=== PATIENT | female | born 1995 | race Asian ===

== ENCOUNTER 2017-05-25 07:18 | Emergency (ER) | payer OTHER ==
[~2017-05-25] VITALS: Ht 162.6 cm; Wt 53.5 kg
[2017-05-25] MEDS ORDERED: METPRE4DP PO (08:33)
[2017-09-08] MEDS ORDERED: GABA300 PO (16:22)
[2017-09-08] MEDS ORDERED: AMIT10 PO (16:22)
[2017-09-08] MEDS ORDERED: Norco 5-325 Ta1 EACH PO (18:23)
== END 2017-05-25 08:55 | disposition home or self-care (01) ==
LOC: ER 07:18
DX: G51.0 Bell's palsy (principal)
CPT/HCPCS: 99282

== ENCOUNTER → 2019-01-05 | Outpatient (CLI) | payer OTHER ==
[~2019-01-05] MED LIST: AMIT10 PO; GABA300 PO; METPRE4DP PO; Norco 5-325 Ta1 EACH PO
== END | disposition home or self-care (01) ==
LOC: LAB 11:44 → LAB SHORT 11:44
PROVIDERS: Advanced Practice Midwife
DX: Z01.419 Encounter for gynecological examination (general) (routine) without abnormal findings (principal)
CPT/HCPCS: G0123

== ENCOUNTER → 2020-07-26 | Outpatient (CLI) | payer OTHER ==
[2020-07-26 13:34] LABS: Source, Urine Clean Catch
[2020-07-26 14:58] LABS: U Amphetamine Screen Not Detected; U Barbituate Screen Not Detected; U Buprenorphine Screen Not Detected; U Cannabinoids Screen Not Detected; U Cocaine Screen Not Detected; U Methadone Screen Not Detected; U Methamphetamine Screen Not Detected; U Opiates Screen Not Detected; U Oxycodone Screen Not Detected; U Phencyclidine Screen Not Detected; U Propoxyphene Screen Not Detected
[2020-07-26 14:59] LABS: U Benzodiazapine Screen Not Detected
[2020-07-26 15:02] LABS: Bacteria Rare /hpf; Red Blood Cells, Urine Not Seen /hpf (0-2); Squamous Epithelial Cells Few /hpf (Few); White Blood Cells, Urine Not Seen /hpf (0-5)
== END ==
LOC: LAB SHORT 13:32 → PLD 13:32
PROVIDERS: Obstetrics & Gynecology
DX: Z34.81 Encounter for supervision of other normal pregnancy, first trimester (principal)
CPT/HCPCS: 81015; 87086

== ENCOUNTER 2021-02-08 01:15 | Inpatient (IN) | payer OTHER ==
[~2021-02-08] VITALS: Ht 162.6 cm; Wt 68.2 kg
[2021-02-08 02:08] LABS: BASOPHILS ABSOLUTE AUTO 0.03 K/mm3 (0.00-0.23); BASOPHILS PERCENT AUTO 0 % (0-2); EOSINOPHILS ABSOLUTE AUTO 0.04 K/mm3 (0.00-0.68); EOSINOPHILS PERCENT AUTO 0 % (0-6); Hematocrit 33.9 % (33.0-51.0); Hemoglobin 11.3 g/dL (11.5-16.0); IMMATURE GRAN ABSOLUTE AUTO 0.15 K/mm3 (0.00-0.10); IMMATURE GRAN PERCENT AUTO 1 % (0-1); LYMPHOCYTES PERCENT AUTO 13 % (21-46); MONOCYTES ABSOLUTE AUTO 0.94 K/mm3 (0.16-1.47); MONOCYTES PERCENT AUTO 9 % (4-13); Mean Corpuscular HGB 30.5 pg (26.0-34.0); Mean Corpuscular HGB Conc 33.3 g/dL (31.5-36.5); Mean Corpuscular Volume 92 fL (80-100); Mean Platelet Volume 10.1 fL (9.1-12.4); NEUTROPHILS ABSOLUTE AUTO 8.03 K/mm3 (1.96-9.15); NEUTROPHILS PERCENT AUTO 76 % (41-73); Platelet Count 180 K/mm3 (150-400); RDW Coefficient Variation 12.9 % (11.7-14.2); RDW Standard Deviation 42.8 fL (35.1-46.3); White Blood Cell Count 10.59 K/mm3 (4.00-11.30)
[2021-02-08 02:26] LABS: Alanine Aminotransfer (ALT/SGP 10 U/L (12-78); Albumin, Blood 2.6 g/dL (3.4-5.0); Albumin/Globulin Ratio 0.6 (0.8-1.8); Alk Phos 122 U/L (50-136); Anion Gap 8 mmol/L (6-16); Aspartate Aminotrans (AST/SGOT 16 U/L (12-37); Bilirubin, Total 0.2 mg/dL (0.1-1.0); Blood Urea Nitrogen 7 mg/dL (8-24); CO2, Blood 25 mmol/L (21-32); Calcium, Blood 9.1 mg/dL (8.5-10.1); Chloride, Blood 105 mmol/L (98-108); Creatinine, Blood 0.41 mg/dL (0.40-1.00); Globulin, Blood 4.5 g/dL (2.2-4.0); Glomerular Filtration Rate >60 (60-); Glucose, Blood 102 mg/dL (70-99); Potassium, Blood 3.8 mmol/L (3.5-5.5); Sodium, Blood 138 mmol/L (136-145); Total Protein, Blood 7.1 g/dL (6.4-8.2)
[2021-02-08] MEDS ORDERED: [UNRECOGNIZED DRUG - OTHER] PO (04:05)
--- NOTE | 2021-02-08 05:26 | NUR ---
02/08/21 0526 Reshma Morales RIGHT HIP BUMP PLACED BEFORE PROCEDURE.
[2021-02-08 06:20] LABS: SARS-Cov-2 (COVID-19) PCR, MMC POSITIVE (NEGATIVE)
--- NOTE | 2021-02-08 08:15 | NUR ---
DRSG REINFORCED WITH ABD AND PRESSURE TAPE.
--- NOTE | 2021-02-08 09:03 | NUR ---
0845- PT AND BOTH RESTING.
[2021-02-08 22:45] LABS: BASOPHILS ABSOLUTE AUTO 0.02 K/mm3 (0.00-0.23); BASOPHILS PERCENT AUTO 0 % (0-2); EOSINOPHILS PERCENT AUTO 0 % (0-6); Hematocrit 29.6 % (33.0-51.0); Hemoglobin 9.7 g/dL (11.5-16.0); IMMATURE GRAN ABSOLUTE AUTO 0.16 K/mm3 (0.00-0.10); IMMATURE GRAN PERCENT AUTO 1 % (0-1); LYMPHOCYTES ABSOLUTE AUTO 1.09 K/mm3 (0.84-5.20); LYMPHOCYTES PERCENT AUTO 6 % (21-46); MONOCYTES ABSOLUTE AUTO 1.58 K/mm3 (0.16-1.47); MONOCYTES PERCENT AUTO 9 % (4-13); Mean Corpuscular HGB 30.3 pg (26.0-34.0); Mean Corpuscular HGB Conc 32.8 g/dL (31.5-36.5); Mean Corpuscular Volume 93 fL (80-100); Mean Platelet Volume 10.5 fL (9.1-12.4); NEUTROPHILS ABSOLUTE AUTO 15.34 K/mm3 (1.96-9.15); NEUTROPHILS PERCENT AUTO 84 % (41-73); Platelet Count 178 K/mm3 (150-400); RDW Coefficient Variation 12.8 % (11.7-14.2); RDW Standard Deviation 43.4 fL (35.1-46.3); White Blood Cell Count 18.19 K/mm3 (4.00-11.30)
[2021-02-09 05:31] LABS: BASOPHILS ABSOLUTE AUTO 0.02 K/mm3 (0.00-0.23); BASOPHILS PERCENT AUTO 0 % (0-2); EOSINOPHILS ABSOLUTE AUTO 0.01 K/mm3 (0.00-0.68); EOSINOPHILS PERCENT AUTO 0 % (0-6); Hematocrit 30.5 % (33.0-51.0); Hemoglobin 10.2 g/dL (11.5-16.0); IMMATURE GRAN ABSOLUTE AUTO 0.18 K/mm3 (0.00-0.10); IMMATURE GRAN PERCENT AUTO 1 % (0-1); LYMPHOCYTES ABSOLUTE AUTO 1.34 K/mm3 (0.84-5.20); LYMPHOCYTES PERCENT AUTO 8 % (21-46); MONOCYTES ABSOLUTE AUTO 1.39 K/mm3 (0.16-1.47); MONOCYTES PERCENT AUTO 8 % (4-13); Mean Corpuscular HGB Conc 33.4 g/dL (31.5-36.5); Mean Corpuscular Volume 93 fL (80-100); NEUTROPHILS ABSOLUTE AUTO 14.56 K/mm3 (1.96-9.15); NEUTROPHILS PERCENT AUTO 83 % (41-73); Platelet Count 182 K/mm3 (150-400); RDW Coefficient Variation 12.9 % (11.7-14.2); RDW Standard Deviation 43.4 fL (35.1-46.3); Red Blood Cell Count 3.29 M/mm3 (3.80-5.20)
--- NOTE | 2021-02-09 05:34 | NUR ---
JOSE J Oliveira/C'Tee AT [id number]
--- NOTE | 2021-02-10 10:50 | NUR ---
1000 I SPOKE WITH TASIA AGGARWAL FROM [facility]. SHE WAS ABLE TO VERIFY THAT HIRAL HAD A NEGATIVE COVID TEST ON 01/04/21 THEN BECAME SYMPTOMATIC ON 01/05/21. SHE WAS TESTED AT [facility] ON 01/24/21 AND THE RESULTS WERE NEGATIVE. SHE HAD A POSITIVE COVID TEST ON ADMISSION TO [facility]. THIS INFORMATION WAS RELAYED TO [facility] IN HOPES OF THEM ALLOWING HER TO SEE HER BABY
[2021-02-10] MEDS ORDERED: OXYC5 PO (11:15)
--- NOTE | 2021-02-10 11:23 | NUR ---
SPOKE WITH CHRISTOPHER IN [facility]. GAVE HER ALL INFORMATION WE HAVE REGARDING MOTHER AND HER COVID TESTING (SEE AG'S NOTE). ALSO SPOKE TO BECKI IN [facility] AT [facility] AND RELAYED THE SAME INFORMATION TO HER.
--- NOTE | 2021-02-10 11:42 | NUR ---
DISCUSSED DISCHARGE INSTRUCTIONS AND POST-CEASARIAN SECTION CARE. DISCUSSED POST- DEPRESSION, WHAT TO WATCH FOR, AND WHAT TO DO IF SHE NOTICES THESE SYMPTOMS. DISCUSSED THIS WITH PATIENT'S MOTHER WELL AND SHE WAS ASKED TO WATCH FOR THE SYMPTOMS WELL. PT DC'D TO PARENTS VEHICLE, WHO WILL BE TAKING HER HOME. PAIN RX GIVEN AND INFORMATION OF WHO TO CALL IF RX ISN'T HELPING. ANSWERED ALL QUESTIONS AND CONCERNS.
== END 2021-02-10 11:30 | disposition home or self-care (01) | DRG 786 ==
LOC: OBS 01:15 → BC 01:15 → OBS 03:15 → BC 03:16
PROVIDERS: Dentist General Practice; Family Medicine; ADMIT Obstetrics & Gynecology
PROC: 10D00Z1 Extraction of Products of Conception, Low, Open Approach (ICD-10-PCS; principal; 2021-02-08 03:30)
DX: O36.8130 Decreased fetal movements, third trimester, not applicable or unspecified (principal); U07.1 COVID-19; O98.52 Other viral diseases complicating childbirth; O76 Abnormality in fetal heart rate and rhythm complicating labor and delivery; Z3A.36 36 weeks gestation of pregnancy; Z37.0 Single live birth; O33.7XX0 Maternal care for disproportion due to other fetal deformities, not applicable or unspecified; O99.62 Diseases of the digestive system complicating childbirth; K21.9 Gastro-esophageal reflux disease without esophagitis; Z79.899 Other long term (current) drug therapy
CPT/HCPCS: 36415; 59025; 76819; 80053; 83020; 85025; 86850; 86900; 86901; 88307; A9270; J0461; J0690; J0702; J1885; J2210; J2370; J2590; J2765; J3010; J7120; U0004